=== PATIENT | female | born 1970 | race Caucasian/White ===

== ENCOUNTER → 2017-01-01 | Outpatient (CLI) | payer OTHER ==
[~2017-01-01] MED LIST: /LAMO15TA PO; /MESA40TAB PO; ALBU17IN INH; APRI0.37 PO; APRISO PO; ASPI81TA13 PO; ASPI81TA85 PO; D31000TA PO; DEPA125C PO; DEPA1TAB3 PO; DEPAKOTE SPRINKLES PO; FOLI1TAB2 PO; IMIT50TA PO; LAMI1TAB8 PO; MAG-400T7 PO; MAGN400C2 PO; NAPR500T2 PO; NEUR300C PO; OXAZ15CA PO; OXYB5TA PO; TOPA25TA10 PO; TOPA50TA PO; TRAZ100T2 PO; TRAZ150T14 PO; Thiamine Hcl PO; VALT1TAB PO; VITA100041 PO; VITA50003 PO; VITA50TA35 PO; VITMTA PO; ZANA4TAB PO; ZOLO100T PO; ZOLO50TA PO; ZOVI5CRE5 TOP; [UNRECOGNIZED DRUG - OTHER] PO
--- NOTE | 2017-01-01 11:10 | REP ---
Clinical: Contusion. Technique: AP, lateral, bilateral oblique views of the right ankle. Findings: Comminuted nondisplaced fracture of the lateral malleolus is appreciated with small adjacent fracture fragment and diffuse soft tissue swelling. Impression: Comminuted fracture of the lateral malleolus with small adjacent fracture fragment and soft tissue swelling. Signed by Marvin Hatch MD 01/01/2017 11:01 A
== END ==
LOC: M WUC 10:44
PROVIDERS: ATTEND Physician Assistant
DX: S82.64XA Nondisplaced fracture of lateral malleolus of right fibula, initial encounter for closed fracture (principal); X58.XXXA Exposure to other specified factors, initial encounter; Y92.89 Other specified places as the place of occurrence of the external cause; Y93.89 Activity, other specified; Y99.8 Other external cause status

== ENCOUNTER → 2017-02-02 | Outpatient (CLI) | payer OTHER ==
[~2017-02-02] MED LIST changes: +E-Z PAQUE 60% w/v SUSP 355ML BOTTLE As Ordered ONE; +E-Z-GAS II EFFERVESCENT PACKET (SODIUM BICARB./CITRIC ACID/SIMETHICONE) As Ordered ONE; +E-Z-HD 98% w/w 340GM SUSP BTL As Ordered ONE
--- NOTE | 2017-02-02 17:53 | REP ---
UPPER GI, AIR CONTRAST AND SMALL BOWEL FOLLOW THROUGH: The procedure was performed under the direct supervision of Dr. Myers. The images were reviewed with Dr. Myers. The director new product film shows no organomegaly or pathological masses. The intestinal gas pattern is nonspecific. Liquid barium and gas-producing granules were given in the erect position as well as liquid barium in the prone oblique positions in order to perform a double contrast upper GI and small bowel follow through examination. The oral and pharyngeal stages of deglutition are unremarkable. Esophageal transport is prompt and efficient and there is no esophagitis, stricture, mucosal ring or hiatal hernia. Gastroesophageal reflux is not demonstrated on this examination. The stomach joe are normally outlined. The rugal folds are smooth and regular. There is no gastritis, neoplasm or ulcer disease. The duodenal joe are normally outlined. The mucosal folds are smooth and regular. There is no duodenitis, pancreatitis, peptic ulcer disease or neoplasm. The visualized portion of the proximal small bowel appears normal in course and caliber. The barium column was followed through the small bowel to the level of the terminal ileum. Small bowel transit time is quite rapid as there is contrast seen in the colon in approximately 5 minutes. During fluoroscopy, gentle palpation shows all loops are freely movable and pliable. There are no fixed or angulated loops. The small bowel mucosal pattern is normal in course and caliber. There is no transition to suggest a partial small bowel obstruction. Spot filming of the terminal ileum shows it to be unremarkable. IMPRESSION: Small bowel transit time is quite rapid as contrast is seen in the colon approximately 5 minutes after drinking. The examination is otherwise unremarkable. 3 minutes and 31 seconds of fluoroscopy time was utilized for this procedure. Reviewed by CAMILO William 02/03/2017 08:24 AEdited and Signed by Jose Myers MD 02/03/2017 02:50 P
== END ==
LOC: M RAD 10:35
PROVIDERS: ATTEND Internal Medicine Gastroenterology
DX: R19.7 Diarrhea, unspecified (principal)